=== PATIENT | female | born 1970 | race Caucasian/White ===

== ENCOUNTER 2017-05-03 12:59 | Emergency (ER) | payer BC ==
[~2017-05-03] VITALS: Ht 175.3 cm; Wt 73.9 kg
--- NOTE | 2017-05-03 13:09 | ER Report ---
History and Physical Time Seen By MD: 13:08 HPI/ROS CHIEF COMPLAINT: Abdominal pain, inability to defecate 7 days HISTORY OF PRESENT ILLNESS: 47-year-old female patient presents to emergency room with complaint of abdominal pain, inability to defecate 7 days. Patient states this been going on for just a little bit over week, she is having hard time having a bowel movement. She stated that she took some stool softeners which had no improvement. Shortly after that she started taking MiraLAX. She states there is no improvement with that either. She states things have continued to persist. She started taking the stool softener twice a day and initiate MiraLAX twice a day. She states that she did try to give herself an enema today which relieved some fluid and small flecks of stool but nothing else. Patient states she is having worsening pain with a type of movement. She states line she's sitting still that there is not in any worsening of her condition. As any fevers, chills, nausea, vomiting or diarrhea. REVIEW OF SYSTEMS: Respiratory: No cough, no dyspnea. Cardiovascular: No chest pain, no palpitations. Gastrointestinal: As noted above Musculoskeletal: No back pain. Allergies: Coded Allergies: latex (Verified Allergy, Unknown, 05/03/17) Home Meds No Active Prescriptions or Reported Meds Past Medical/Surgical History Patient denies any pertinent medical history. Patient has a surgical history of tummy tuck, ectopic , orthopedic surgery of the left hip, wisdom teeth removal. Patient has a family medical history of cancer. Reviewed Nurses Notes: Yes Constitutional Vital Sign - Last 24 Hours 05/03/17 05/03/17 05/03/17 05/03/17 13:06 13:08 13:29 13:30 Temp 97.9 Pulse 73 81 Resp 16 B/P (MAP) 126/79 (95) 126/79 104/59 (74) Pulse Ox 95 96 O2 Delivery Room Air 05/03/17 05/03/17 05/03/17 14:00 14:30 15:00 B/P (MAP) 100/67 (78) 104/70 (81) 112/70 (84) Physical Exam General Appearance: The patient is alert, has no immediate need for airway protection and no current signs of toxicity. ENT: Tympanic membranes are pearly-peres, auditory canals are patent, mucous membranes are moist. Respiratory: Chest is non tender, lungs are clear to auscultation. Cardiac: regular rate and rhythm Gastrointestinal: Abdomen is soft and mildly tender, no masses, bowel sounds hypoactive in the left upper lower quadrants. Musculoskeletal: Neck: Neck is supple and non tender. Extremities have full range of motion and are non tender. Skin: No rashes or lesions. DIFFERENTIAL DIAGNOSIS: After history and physical exam differential diagnosis was considered for constipation, obstruction, enteritis. Medical Decision Making EKG/Imaging Imaging EXAMINATION: Frontal chest with 2 views of the abdomen HISTORY: Abdominal pain. COMPARISON: None. FINDINGS: The lungs are clear. No focal consolidation or pleural fluid. Normal heart size and pulmonary vascularity, with normal cardiomediastinal contours. Normal bowel gas pattern, with air scattered throughout normal-caliber loops of small bowel and colon. No radiographic evidence of obstruction. No free intraperitoneal air. No evidence of organomegaly or abnormal calcification. Visualized osseous structures are unremarkable. IMPRESSION: 1. No evidence of acute cardiopulmonary disease. 2. Normal bowel gas pattern. Report Dictated By: Mike Barajas MD at 05/03/2017 2:20 PM Report E-Signed By: Mike Barajas MD at 05/03/2017 2:21 PM ED Course/Re-evaluation ED Course Patient was admitted to exam room, history and physical were obtained. Differential diagnoses were considered. On examination patient does have some tenderness to her abdomen, bowel sounds are hypoactive on the left upper and lower quadrants. A acute abdominal series was done. Lungs are clear, abdomen does show no stool in the distal colon, however does show significant amount of stool in the descending colon. I discussed the findings with the patient. We will go ahead and treat this with magnesium citrate. She is taken bottle today, which should cause her to start having a bowel movement. However does not like her to take an additional bottle tomorrow. She is to take Tylenol ibuprofen as if her pain. She is to increase her activities much she can tolerate, increase her fluid intake as well as her fiber intake. The patient verbalized understanding and agreement with plan. Decision to Disposition Date: May 03, 2017 Decision to Disposition Time: 15:01 Depart Departure Latest Vital Signs Vital Signs Date Time Temp Pulse Resp B/P (MAP) Pulse Ox O2 Delivery O2 Flow Rate FiO2 05/03/17 15:00 112/70 (84) 05/03/17 13:29 81 96 05/03/17 13:08 97.9 16 Room Air Impression: Primary Impression: Constipation Condition: Improved Disposition: HOME OR SELF-CARE Referrals: STU BURTON (PCP) New Scripts No Active Prescriptions or Reported Meds Patient Instructions: Constipation (ED) Additional Instructions: Increase fluid intake. Increase exercise as much as you can tolerate. Take the Magnesium Citrate today, you may repeat tomorrow if you haven't had a large bowel movement. Take Tylenol or Ibuprofen as needed for pain. Return to the ER if condition worsens. Follow up with your primary care provider in the next week. Problem Qualifiers Primary Impression: Constipation Constipation type: unspecified constipation type Qualified Codes: K59.00 - Constipation, unspecified SRINIVAS CARRANZA May 03, 2017 13:09
--- NOTE | 2017-05-03 14:25 | RADIOLOGY IMAGING REPORT ---
FACILITY: [facility] PATIENT NAME: Patricia Perrin : 1970 MR: [id number] V: [id number] EXAM DATE: ORDERING PHYSICIAN: SRINIVAS CARRANZA TECHNOLOGIST: Location: [facility] Patient: Patricia Perrin : 1970 Visit/Account:[id number] Date of Sevice: 05/03/2017 EXAMINATION: Frontal chest with 2 views of the abdomen HISTORY: Abdominal pain. COMPARISON: None. FINDINGS: The lungs are clear. No focal consolidation or pleural fluid. Normal heart size and pulmonary vascula rity, with normal cardiomediastinal contours. Normal bowel gas pattern, with air scattered throughout normal-caliber loops of small bowel and colon . No radiographic evidence of obstruction. No free intraperitoneal air. No evidence of organomegaly o r abnormal calcification. Visualized osseous structures are unremarkable. IMPRESSION: 1. No evidence of acute cardiopulmonary disease. 2. Normal bowel gas pattern. Report Dictated By: Mike Barajas MD at 05/03/2017 2:20 PM Report E-Signed By: Mike Barajas MD at 05/03/2017 2:21 PM WSN:[id number]
[2017-05-03 15:00] VITALS: BP 112/70
[2017-05-03] MEDS ORDERED: MAGNESIUM CITRATE 300 ML BTL PO ONE (15:00)
== END 2017-05-03 15:07 | disposition home or self-care (01) ==
LOC: ER 13:19
DX: K59.00 Constipation, unspecified (principal)
CPT/HCPCS: 74022; 99283

== ENCOUNTER → 2018-02-05 | Outpatient (CLI) | payer BC ==
--- NOTE | 2018-02-05 14:29 | RADIOLOGY IMAGING REPORT ---
FACILITY: [facility] PATIENT NAME: CISCO REILLY : [id number] MR: [id number] V: [id number] EXAM DATE: ORDERING PHYSICIAN: CARRIE LYNN TECHNOLOGIST: Arti Zaman PROCEDURE:BILATERAL DIAGNOSTIC DIGITAL MAMMOGRAM WITH CAD ASSISTED INTERPRETATION & 3D TOMOSYNTHESIS COMPARISON:Prior mammograms 03/08/15, 02/16/15. INDICATIONS:LT BREAST MASS FINDINGS: Dense heterogeneous fibroglandular tissue is seen throughout the breasts. The parenchymal pattern throughout the Right breast has remained stable. There are multiple lobular densities in the deep central Left breast which are not appreciated on the prior study. Today's Left breast Ultrasound demonstrated numerous cysts which would account for this finding. DIAGNOSTIC CATEGORY 2--BENIGN FINDING. RECOMMENDATIONS: ROUTINE MAMMOGRAM AND CLINICAL EVALUATION. IMPRESSION: BIRADS 2: Benign finding. There are multiple Left breast cysts which were better depicted on Today's Left breast Ultrasound. Dictated by: Balbina Collier M.D. on 02/05/2018 at 14:01 Transcribed by: MITRA on 02/05/2018 at 14:14 Approved by: Balbina Collier M.D. on 02/05/2018 at 14:28 [facility]
--- NOTE | 2018-02-05 14:29 | RADIOLOGY IMAGING REPORT ---
FACILITY: [facility] [place] PATIENT NAME: CISCO REILLY : [id number] MR: [id number] V: [id number] EXAM DATE: ORDERING PHYSICIAN: CARRIE LYNN TECHNOLOGIST: Bessy Fonseca RDMS PROCEDURE:US LEFT BREAST COMPLETE COMPARISON:None. INDICATIONS:PALPABLE LT BREAST MASS UPPER LEFT BREAST FINDINGS: There are multiple cysts within the upper outer quadrant of the Left breast the largest is in the 12 o'clock position of the Left breast 3cm from the nipple measuring 2.4 x 1.6 x 1.8cm. There is a 3mm hypoechoic nodule in the 3 o'clock position of the Left breast appeared to represent a small cyst on the Arad image although could not be localized on the Rad image. There is a small 3mm cyst in the 4 o'clock position of the Left breast. There is a 3mm cyst in the 7 o'clock position of the Left breast. A hypoechoic region in the 9 o'clock position of the Left breast 5cm from the nipple was shown to represent a focal island of fibroglandular tissue on subsequent sinni loops. In the 11 o'clock position of the Left breast 2cm from the nipple there is a 1.1cm cyst. DIAGNOSTIC CATEGORY 2--BENIGN FINDING. RECOMMENDATIONS: ROUTINE MAMMOGRAM AND CLINICAL EVALUATION. IMPRESSION: BIRADS 2: Benign finding. There are multiple cysts in the Left breast which would correspond to patient's palpable finding. Dictated by: Balbina Collier M.D. on 02/05/2018 at 13:50 Transcribed by: MITRA on 02/05/2018 at 14:07 Approved by: Balbina Collier M.D. on 02/05/2018 at 14:28 [facility]
== END ==
LOC: US 03:06
PROVIDERS: ATTEND Physician Assistant
DX: N60.02 Solitary cyst of left breast (principal); N63.20 Unspecified lump in the left breast, unspecified quadrant; R10.11 Right upper quadrant pain
CPT/HCPCS: 77062; 77066